=== PATIENT | female | born 2000 | race Caucasian/White ===

== ENCOUNTER 2024-05-24 16:42 | Emergency (ER) | payer OTHER ==
[2024-05-24] MEDS ORDERED: IBUPROFEN 200 MG TAB PO ONE (16:53)
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
[2024-05-24 18:49] VITALS: BP 116/73; TEMP 98.6; O2SAT 99
== END 2024-05-24 18:37 | disposition home or self-care (01) ==
LOC: ER 16:42
DX: S16.1XXA Strain of muscle, fascia and tendon at neck level, initial encounter (principal); S60.312A Abrasion of left thumb, initial encounter; S60.311A Abrasion of right thumb, initial encounter; S60.012A Contusion of left thumb without damage to nail, initial encounter; R29.91 Unspecified symptoms and signs involving the musculoskeletal system; V49.9XXA Car occupant (driver) (passenger) injured in unspecified traffic accident, initial encounter; F41.9 Anxiety disorder, unspecified
CPT/HCPCS: 36415; 70450; 71250; 72125; 84703; 99285